=== PATIENT | male | born 1940 | race Caucasian/White ===

== ENCOUNTER 2020-09-09 01:56 | Emergency (ER) | payer OTHER, MEDICAID ==
[~2020-09-09] VITALS: Ht 165.1 cm; Wt 65.8 kg
[2020-09-09 01:56] VITALS: BP_SYST 156
[2020-09-09] MEDS ORDERED: ACET325T PO (02:15)
[2020-09-09] MEDS ORDERED: MELA3TAB69 PO (02:16)
[2020-09-09 02:39] LABS: CLARITY/URINE CLOUDY (CLEAR); COLOR,URINE RED (YELLOW); GLUCOSE,URINE NEGATIVE (NEGATIVE); PROTEIN URINE 3+ (NEGATIVE)
[2020-09-09 02:40] LABS: BILIRUBIN,URINE NEGATIVE (NEGATIVE); BLOOD, URINE 4+ (NEGATIVE); KETONES,URINE TRACE (NEGATIVE); LEUKOCYTE ESTERASE ,URINE 2+ (NEGATIVE); NITRITE, URINE NEGATIVE (NEGATIVE)
[2020-09-09 02:42] LABS: BACTERIA,URINE FEW /HPF (None Seen); RBC,URINE >100 /HPF (0-3); WBC,URINE 50-80 /HPF (0-3)
[2020-09-09 03:17] LABS: BASOPHILS # (AUTO) 0.1 K/uL (0.0-0.2); BASOPHILS % (AUTO) 0.9 % (0.0-2.0); EOSINOPHILS # (AUTO) 0.2 K/uL (0.0-0.4); EOSINOPHILS % (AUTO) 3.3 % (0.0-4.0); HEMATOCRIT 42.5 % (36-54); HEMOGLOBIN 14.4 g/dL (14.0-18.0); LYMPHOCYTES # (AUTO) 1.9 K/uL (1.0-5.5); LYMPHOCYTES % (AUTO) 32.5 % (20.5-51.5); MEAN CORPUSCULAR HEMOGLOBIN 29 pg (27-31); MEAN CORPUSCULAR HGB CONC 34 % (32-36); MEAN CORPUSCULAR VOLUME 86 fL (79.0-98.0); MONOCYTES # (AUTO) 0.3 K/uL (0.0-1.0); MONOCYTES % (AUTO) 5.9 % (1.7-9.3); NEUTROPHILS # (AUTO) 3.4 K/uL (1.8-7.7); NEUTROPHILS % (AUTO) 57.4 % (40.0-70.0); PLATELET COUNT (AUTO) 178 K/uL (130-430); RED BLOOD CELL COUNT(AUTO) 4.93 MIL/uL (4.2-6.2); RED CELL DISTRIBUTION WIDTH 13.7 % (9.0-15.0); WHITE BLOOD COUNT (AUTO) 5.9 K/uL (4.8-10.8)
[2020-09-09] MEDS ORDERED: NITROFURANTOIN MONOHYD/M-CRYST 100 MG CAPSULE PO ONE (03:30)
[2020-09-09 03:31] LABS: ANION GAP 9 (5-15); CALCIUM 8.4 mg/dL (8.4-11.0); CHLORIDE 104 mmol/L (98-107); CREATININE 1.29 mg/dL (0.55-1.30); GLUCOSE 93 mg/dL (70-99); POTASSIUM 3.9 mmol/L (3.5-5.1); SODIUM SERUM 139 mmol/L (136-145); UREA NITROGEN, BLOOD 22 mg/dL (8-21)
[2020-09-09 03:35] LABS: INR 0.9 (0.80-1.20); PROTHROMBIN TIME 9.6 SECS (9.5-12.5)
[2020-09-09 03:37] LABS: ALANINE AMINOTRANSFERASE 31 U/L (12-78); ALBUMIN 3.7 g/dL (3.4-4.8); ASPARTATE AMINOTRANSFERASE 24 U/L (10-37); TOTAL BILIRUBIN 0.3 mg/dL (0.0-1.0)
[2020-09-09 07:13] VITALS: BP_SYST 156
== END 2020-09-09 07:13 | disposition home or self-care (01) ==
LOC: SED 01:56
DX: N39.0 Urinary tract infection, site not specified (principal); R33.9 Retention of urine, unspecified; R31.9 Hematuria, unspecified; Z88.1 Allergy status to other antibiotic agents
CPT/HCPCS: 36415; 80053; 81000-TC; 85025; 85610-TC; 85730-TC; 87086; 99284

== ENCOUNTER 2021-12-23 15:37 | Emergency (ER) | payer OTHER, MEDICAID ==
[~2021-12-23] VITALS: Ht 170.2 cm; Wt 68.0 kg
[~2021-12-23 15:37] MED LIST: ACET325T PO; MELA3TAB69 PO
[2021-12-23 17:20] VITALS: BP_SYST 124
[2021-12-23 17:31] LABS: BILIRUBIN,URINE NEGATIVE (NEGATIVE); BLOOD, URINE NEGATIVE (NEGATIVE); CLARITY/URINE CLEAR (CLEAR); COLOR,URINE YELLOW (YELLOW); GLUCOSE,URINE NEGATIVE (NEGATIVE); KETONES,URINE NEGATIVE (NEGATIVE); LEUKOCYTE ESTERASE ,URINE NEGATIVE (NEGATIVE); NITRITE, URINE NEGATIVE (NEGATIVE); PROTEIN URINE NEGATIVE (NEGATIVE); UROBILINOGEN,URINE 0.2 (0.2-1.0)
--- NOTE | 2021-12-23 17:40 | NUR ---
Patient to ER bed H1 to gown for evaluation. Side rails up.
--- NOTE | 2021-12-23 17:45 | NUR ---
ER at bedside examining patient.
--- NOTE | 2021-12-23 17:50 | NUR ---
PT SENT FOR MED CLEARANCE FOR ADMISSION TO [facility].
[2021-12-23 17:53] LABS: BARBITURATE, URINE NEGATIVE (NEG <=200); BENZODIAZEPINE, URINE NEGATIVE (NEG <=150); CANNABINOID, URINE NEGATIVE (NEG <=50); COCAINE, URINE NEGATIVE (NEG <=150); METHAMPHETAMINES SCREEN,URINE NEGATIVE (NEG <=500); OPIATE, URINE NEGATIVE (NEG <=100); PHENCYCLIDINE SCREEN,URINE NEGATIVE (NEG <=25); UR TRICYCLIC ANTIDEPRESSANTS NEGATIVE (NEG <=300); URINE AMPHETAMINE NEGATIVE (NEG <=500); URINE METHADONE NEGATIVE (NEG <=200); URINE OXYCODONE SCREEN NEGATIVE (NEG <=100); URINE PROPOXYPHENE SCREEN NEGATIVE (NEG <=300)
[2021-12-23 18:03] LABS: BASOPHILS % (AUTO) 0.7 % (0.0-2.0); EOSINOPHILS # (AUTO) 0.1 K/uL (0.0-0.4); EOSINOPHILS % (AUTO) 2.4 % (0.0-4.0); HEMATOCRIT 42.5 % (36-54); HEMOGLOBIN 14.5 g/dL (14.0-18.0); LYMPHOCYTES # (AUTO) 1.4 K/uL (1.0-5.5); LYMPHOCYTES % (AUTO) 23.2 % (20.5-51.5); MEAN CORPUSCULAR HEMOGLOBIN 28 pg (27-31); MEAN CORPUSCULAR HGB CONC 34 % (32-36); MEAN CORPUSCULAR VOLUME 83 fL (79.0-98.0); MONOCYTES # (AUTO) 0.3 K/uL (0.0-1.0); MONOCYTES % (AUTO) 5.4 % (1.7-9.3); NEUTROPHILS # (AUTO) 4.1 K/uL (1.8-7.7); NEUTROPHILS % (AUTO) 68.3 % (40.0-70.0); PLATELET COUNT (AUTO) 205 K/uL (130-430); RED BLOOD CELL COUNT(AUTO) 5.14 MIL/uL (4.2-6.2)
[2021-12-23 18:05] LABS: ANION GAP 8 (5-15); CALCIUM 8.3 mg/dL (8.4-11.0); CHLORIDE 106 mmol/L (98-107); CREATININE 1.46 mg/dL (0.55-1.30); GLUCOSE 108 mg/dL (70-99); SODIUM SERUM 139 mmol/L (136-145); UREA NITROGEN, BLOOD 23 mg/dL (8-21)
[2021-12-23 18:18] LABS: ALANINE AMINOTRANSFERASE 35 U/L (12-78); ALBUMIN 3.5 g/dL (3.4-4.8); ASPARTATE AMINOTRANSFERASE 25 U/L (10-37); TOTAL BILIRUBIN 0.3 mg/dL (0.0-1.0)
[2021-12-23 18:20] LABS: ACETAMINOPHEN < 1 ug/mL (1-30); ALCOHOL, BLOOD < 3 mg/dL (<10)
--- NOTE | 2021-12-23 18:49 | NUR ---
Patient given written and verbal discharge instructions and verbalizes understanding. ER MD discussed with patient the results and treatment provided. Patient in stable condition. ID arm band removed. NO Rx given. Patient educated on pain management and to follow up with PMD. Pain Scale 0/10. Opportunity for questions provided and answered. Medication side effect fact sheet provided.
[2021-12-23 19:00] VITALS: BP_SYST 188
== END 2021-12-23 18:49 ==
LOC: SED 15:37
DX: F39 Unspecified mood [affective] disorder (principal); Z01.818 Encounter for other preprocedural examination; Z88.1 Allergy status to other antibiotic agents
CPT/HCPCS: 36415; 80053; 80307; 81003; 85025; 99285; G0480; G0481; G0482

== ENCOUNTER 2024-03-10 18:53 | Inpatient (IN) | payer OTHER, MEDICAID ==
[~2024-03-10] VITALS: Ht 165.1 cm; Wt 65.3 kg
[2024-03-10 19:10] VITALS: BP_SYST 125; PULSE 94; RESP 18; TEMP 97.6; O2SAT 97
[2024-03-10 21:05] LABS: BASOPHILS % (AUTO) 0.5 % (0.0-2.0); EOSINOPHILS # (AUTO) 0.1 K/uL (0.0-0.4); EOSINOPHILS % (AUTO) 1.2 % (0.0-4.0); HEMOGLOBIN 13.3 g/dL (14.0-18.0); LYMPHOCYTES # (AUTO) 1.2 K/uL (1.0-5.5); LYMPHOCYTES % (AUTO) 17.6 % (20.5-51.5); MEAN CORPUSCULAR HEMOGLOBIN 29 pg (27-31); MEAN CORPUSCULAR HGB CONC 34 % (32-36); MEAN CORPUSCULAR VOLUME 86 fL (79.0-98.0); MONOCYTES # (AUTO) 0.4 K/uL (0.0-1.0); MONOCYTES % (AUTO) 5.9 % (1.7-9.3); NEUTROPHILS % (AUTO) 74.8 % (40.0-70.0); PLATELET COUNT (AUTO) 238 K/uL (130-430); RED BLOOD CELL COUNT(AUTO) 4.57 MIL/uL (4.2-6.2); RED CELL DISTRIBUTION WIDTH 13.4 % (9.0-15.0); WHITE BLOOD COUNT (AUTO) 6.6 K/uL (4.8-10.8)
[2024-03-10 21:06] LABS: ALANINE AMINOTRANSFERASE 34 U/L (12-78); ALBUMIN 3.7 g/dL (3.4-4.8); ANION GAP 11 (5-15); ASPARTATE AMINOTRANSFERASE 33 U/L (10-37); BILIRUBIN,DIRECT 0.1 mg/dL (0.0-0.3); CALCIUM 8.9 mg/dL (8.4-11.0); CARBON DIOXIDE 25 mmol/L (23-29); CHLORIDE 105 mmol/L (98-107); CREATININE 1.36 mg/dL (0.55-1.30); GLUCOSE 126 mg/dL (74-106); POTASSIUM 3.6 mmol/L (3.5-5.1); SODIUM SERUM 141 mmol/L (136-145); TOTAL BILIRUBIN 0.2 mg/dL (0.0-1.0); TOTAL PROTEIN, SERUM 6.9 g/dL (6.4-8.3); UREA NITROGEN, BLOOD 22 mg/dL (8-21)
[2024-03-10 21:32] LABS: PROTHROMBIN TIME 10.2 SECS (9.5-12.5)
[2024-03-10 22:47] LABS: BILIRUBIN,URINE NEGATIVE (NEGATIVE); BLOOD, URINE 3+ (NEGATIVE); GLUCOSE,URINE TRACE (NEGATIVE); KETONES,URINE NEGATIVE (NEGATIVE); LEUKOCYTE ESTERASE ,URINE NEGATIVE (NEGATIVE); NITRITE, URINE NEGATIVE (NEGATIVE); PROTEIN URINE 3+ (NEGATIVE); UROBILINOGEN,URINE 0.2 (0.2-1.0)
[2024-03-10] MEDS: MORPHINE 2 MG/ML INJ. SYRINGE IVP ONE (22:56)
[2024-03-10] MEDS: ONDANSETRON HCL 4 MG/2 ML VIAL IVP ONE (22:57)
[2024-03-10 23:05] LABS: COLOR,URINE RED (YELLOW)
[2024-03-10 23:06] LABS: CLARITY/URINE TURBID (CLEAR); RBC,URINE >100 /HPF (0-3)
[2024-03-10 23:07] LABS: BACTERIA,URINE FEW /HPF (None Seen)
[2024-03-11] MEDS: HYDROcodone/ACETAMIN 5-325 MG TAB (NORCO/ VICODIN) PO ONE (00:15)
[2024-03-11] MEDS: ONDANSETRON 4 MG ODT TAB PO ONE (00:15)
[2024-03-11] MEDS: NACL 0.9% 1,000 ML IV SCH (01:45)
[2024-03-11] MEDS ORDERED: NOR10 PO (02:01)
[2024-03-11] MEDS ORDERED: MELA1TAB29 PO (02:01)
[2024-03-11] MEDS ORDERED: IBUP-1971 PO (02:01)
[2024-03-11] MEDS ORDERED: SENN8.6T19 PO (02:03)
[2024-03-11] MEDS ORDERED: ACET325T PO (02:03)
[2024-03-11] MEDS ORDERED: HYDR-3917 PO (02:03)
[2024-03-11] MEDS: CIPROFLOXACIN HCL 500 MG TABLET PO ONE (02:54)
[2024-03-11 03:41] VITALS: BP_SYST 157; PULSE 81; RESP 18; TEMP 97.2; O2SAT 96
[2024-03-11] MEDS: HYDROcodone/ACETAMIN 10-325 MG TAB PO PRN (03:59)
[2024-03-11 04:13] VITALS: BP_SYST 157; PULSE 81; RESP 18; TEMP 97.2; O2SAT 96
[2024-03-11 08:00] VITALS: BP_SYST 153; PULSE 89; RESP 18; TEMP 97.5; O2SAT 99
[2024-03-11] MEDS ORDERED: IBUPROFEN 800 MG TABLET PO PRN (11:00)
[2024-03-11] MEDS ORDERED: NON-FORMULARY MEDICATION (Melatonin 1 TAB) PO PRN (11:00)
[2024-03-11] MEDS ORDERED: ACETAMINOPHEN 325 MG TABLET PO SCH (11:00)
[2024-03-11] MEDS: LIDOCAINE 2% JELLY UROJECT 10 ML MM ONE (11:02)
[2024-03-11 14:09] LABS: BILIRUBIN,URINE NEGATIVE (NEGATIVE); BLOOD, URINE 3+ (NEGATIVE); CLARITY/URINE TURBID (CLEAR); COLOR,URINE RED (YELLOW); GLUCOSE,URINE NEGATIVE (NEGATIVE); KETONES,URINE NEGATIVE (NEGATIVE); LEUKOCYTE ESTERASE ,URINE NEGATIVE (NEGATIVE); NITRITE, URINE NEGATIVE (NEGATIVE); PROTEIN URINE 3+ (NEGATIVE); UROBILINOGEN,URINE 0.2 (0.2-1.0)
[2024-03-11 14:14] LABS: BACTERIA,URINE RARE /HPF (None Seen); RBC,URINE >100 /HPF (0-3); WBC,URINE NONE SEEN /HPF (0-3)
[2024-03-11 15:04] VITALS: BP_SYST 160; PULSE 114; RESP 16; TEMP 96.9; O2SAT 98
[2024-03-11] MEDS: SENNOSIDES 8.6 MG TABLET PO SCH (15:12)
[2024-03-11] MEDS: amLODIPine BESYLATE 10 MG TABLET PO ONE (15:12)
[2024-03-11 20:00] VITALS: BP_SYST 149; PULSE 106; RESP 18; TEMP 97.5; O2SAT 96
[2024-03-12] VITALS: BP_SYST 111; PULSE 91; RESP 18; TEMP 97.6; O2SAT 97
[2024-03-12 07:50] VITALS: BP_SYST 139; PULSE 93; RESP 15; TEMP 97.9; O2SAT 99
[2024-03-12 09:00] VITALS: O2SAT 99
[2024-03-12] MEDS: amLODIPine BESYLATE 10 MG TABLET PO SCH (09:00)
[2024-03-12 09:56] LABS: BASOPHILS % (AUTO) 0.4 % (0.0-2.0); EOSINOPHILS # (AUTO) 0.1 K/uL (0.0-0.4); EOSINOPHILS % (AUTO) 1.6 % (0.0-4.0); HEMOGLOBIN 12.1 g/dL (14.0-18.0); LYMPHOCYTES # (AUTO) 1.1 K/uL (1.0-5.5); LYMPHOCYTES % (AUTO) 14.4 % (20.5-51.5); MEAN CORPUSCULAR HEMOGLOBIN 29 pg (27-31); MEAN CORPUSCULAR HGB CONC 34 % (32-36); MEAN CORPUSCULAR VOLUME 85 fL (79.0-98.0); MONOCYTES # (AUTO) 0.5 K/uL (0.0-1.0); MONOCYTES % (AUTO) 6.8 % (1.7-9.3); NEUTROPHILS # (AUTO) 5.9 K/uL (1.8-7.7); NEUTROPHILS % (AUTO) 76.8 % (40.0-70.0); PLATELET COUNT (AUTO) 267 K/uL (130-430); RED BLOOD CELL COUNT(AUTO) 4.24 MIL/uL (4.2-6.2); RED CELL DISTRIBUTION WIDTH 13.6 % (9.0-15.0); WHITE BLOOD COUNT (AUTO) 7.7 K/uL (4.8-10.8)
[2024-03-12 10:08] LABS: ANION GAP 8 (5-15); CALCIUM 8.8 mg/dL (8.4-11.0); CARBON DIOXIDE 27 mmol/L (23-29); CHLORIDE 104 mmol/L (98-107); CREATININE 1.15 mg/dL (0.55-1.30); GLUCOSE 106 mg/dL (74-106); POTASSIUM 3.6 mmol/L (3.5-5.1); SODIUM SERUM 139 mmol/L (136-145); UREA NITROGEN, BLOOD 19 mg/dL (8-21)
[2024-03-12] MEDS: ACETAMINOPHEN 325 MG TABLET PO PRN (12:02)
[2024-03-12 12:55] VITALS: BP_SYST 139; PULSE 93; RESP 15; TEMP 97.9; O2SAT 99
[2024-03-12 16:17] VITALS: BP_SYST 112; PULSE 81; RESP 15; TEMP 97.9; O2SAT 95
[2024-03-12 20:00] VITALS: BP_SYST 127; PULSE 79; RESP 16; TEMP 97.9; O2SAT 98
[2024-03-12] MEDS: CIPROFLOXACIN LACT 200 MG/D5W 100 ML IV SCH (21:08)
[2024-03-12] MEDS: MELATONIN 3 MG TABLET PO PRN (22:43)
[2024-03-13] VITALS: BP_SYST 118; PULSE 76; RESP 15; TEMP 97.9; O2SAT 97
[2024-03-13 08:00] VITALS: BP_SYST 126; PULSE 97; RESP 16; TEMP 98.3; O2SAT 97
[2024-03-13 09:00] VITALS: O2SAT 97
[2024-03-13 16:52] VITALS: BP_SYST 125; PULSE 90; RESP 16; TEMP 98; O2SAT 97
[2024-03-13 20:00] VITALS: BP_SYST 132; PULSE 86; RESP 17; TEMP 97.8; O2SAT 96
[2024-03-14] VITALS: BP_SYST 117; PULSE 80; RESP 16; TEMP 97.5; O2SAT 97
[2024-03-14 17:33] VITALS: BP_SYST 152; PULSE 100; RESP 18; TEMP 97.7; O2SAT 97
== END 2024-03-14 19:10 | DRG 687 ==
LOC: SED 18:53 → SMU 03-11 01:35
PROVIDERS: ADMIT Family Medicine; ATTEND Family Medicine
DX: D49.4 Neoplasm of unspecified behavior of bladder (principal); N39.0 Urinary tract infection, site not specified; D64.9 Anemia, unspecified; I10 Essential (primary) hypertension; Z85.51 Personal history of malignant neoplasm of bladder; Z79.899 Other long term (current) drug therapy; Z88.8 Allergy status to other drugs, medicaments and biological substances; Z88.1 Allergy status to other antibiotic agents; F20.9 Schizophrenia, unspecified
CPT/HCPCS: 36415; 71045; 80048; 80076; 81000; 81001; 81015; 83605; 84484; 85025; 85610; 85730; 87040; 87081; 87086; 87186; 93005; 99285; J0744